=== PATIENT | male | born 1995 | race Caucasian/White ===

== ENCOUNTER 2017-06-20 19:15 | Emergency (ER) | payer OTHER ==
[~2017-06-20] VITALS: Ht 185.4 cm; Wt 73.9 kg
[2017-06-20 19:15] VITALS: BP 133/72
[2017-06-20] MEDS ORDERED: NAPR500T PO (19:54)
--- NOTE | 2017-06-20 19:54 | PHYS DOC ---
Past History Past Medical History: No Pertinent History Past Surgical History: Other Additional Past Surgical Histo: [place] teeth Smoking: Cigarettes Alcohol Use: Occasionally Drug Use: None Adult General Chief Complaint Chief Complaint: SHOULDER INJURY HPI HPI Patient is a 22 year old male who presents with right shoulder pain. He states he and his were "wrestling and she pulled it back behind me." Depue a "pop. " He is right hand dominant. No numbness/tingling or weakness of the arm. No neck pain or injury. No fall. Review of Systems Review of Systems Musculoskeletal: Denies back pain or neck pain. Right shoulder pain. Integument: Denies rash or skin lesions; no bruising Neurologic: Denies headache, focal weakness or sensory changes Physical Exam Physical Exam Constitutional: Well developed, well nourished, no acute distress, non-toxic appearance. Neck: Normal range of motion, no tenderness, supple, no stridor. Skin: Warm, dry, no erythema, no rash. Back: No tenderness, no CVA tenderness. Extremities: POS tenderness to palpation of right posterior shoulder, no cyanosis, no clubbing, ROM intact, no edema. Radial, median and ulnar N intact to motor and sensory distally. No palpable defect. Neurologic: Alert and oriented X 3, normal motor function, normal sensory function, no focal deficits noted. Current Patient Data Vital Signs Vital Signs Date Time Temp Pulse Resp B/P (MAP) Pulse Ox O2 Delivery O2 Flow Rate FiO2 06/20/17 19:15 98.4 77 20 100 Room Air Radiology/Procedures Radiology/Procedures Right shoulder xray interpreted by myself at 1945 PM: no acute fracture Course & Med Decision Making Course & Med Decision Making Reviewed xray findings. No acute bony injury. F/u as needed and referral to [facility]. I have spoken with the patient and/or caregivers. I have explained the patient' s condition, diagnosis and treatment plan based on the information available to me at this time. I have answered the patient's and/or caregiver's questions and addressed any concerns. The patient and/or caregivers have as good an understanding of the patient's diagnosis, condition and treatment plan as can be expected at this point. The patient's condition is stable and appropriate for discharge from the emergency department. The patient will pursue further outpatient evaluation with the primary care physician or other designated or consulting physician as outlined in the discharge instructions. The patient and/or caregivers are agreeable to this plan of care and follow-up instructions have been explained in detail. The patient and/or caregivers have received these instructions in written format and have expressed an understanding of the discharge instructions. The patient and/or caregivers are aware that any significant change in condition or worsening of symptoms should prompt an immediate return to this or the closest emergency department or a call to 911. Dragon Disclaimer Dragon Disclaimer This chart was dictated in whole or in part using Voice Recognition software in a busy, high-work load, and often noisy Emergency Department environment. It may contain unintended and wholly unrecognized errors or omissions. Departure Departure: Impression: Primary Impression: Right shoulder strain Disposition: HOME, SELF-CARE Condition: STABLE Referrals: PCP,UNKNOWN (PCP) Patient Instructions: Shoulder Exercises, Generic, SportsMed, Shoulder Pain Scripts Naproxen (NAPROSYN) 500 Mg Tablet 1 TAB PO BID, #30 TAB 1 Refill Prov: TOMI AGUIRRE MD 06/20/17 Problem Qualifiers Primary Impression: Right shoulder strain Encounter type: initial encounter Qualified Codes: S46.911A - Strain of unspecified muscle, fascia and tendon at shoulder and upper arm level, right arm , initial encounter TOMI AGUIRRE MD Jun 20, 2017 19:54
--- NOTE | 2017-06-21 08:25 | RAD ---
EXAM: Right shoulder, 3 views. HISTORY: Trauma. COMPARISON: None. FINDINGS: Internal and external rotation and transscapular views of the right shoulder obtained. There is no fracture, dislocation or subluxation. IMPRESSION: No acute osseous finding.
== END 2017-06-20 20:00 | disposition home or self-care (01) ==
LOC: ER 19:15
DX: S46.911A Strain of unspecified muscle, fascia and tendon at shoulder and upper arm level, right arm, initial encounter (principal); F17.210 Nicotine dependence, cigarettes, uncomplicated; X58.XXXA Exposure to other specified factors, initial encounter; Y93.72 Activity, wrestling; Y99.8 Other external cause status; Y92.89 Other specified places as the place of occurrence of the external cause
CPT/HCPCS: 73030; 99284

== ENCOUNTER 2017-06-25 08:18 | Emergency (ER) | payer OTHER ==
[~2017-06-25 08:18] MED LIST: NAPR500T PO
[2017-06-25 08:20] VITALS: BP 130/78
[2017-06-25] MEDS ORDERED: FLUORESCEIN 1MG EYE STRIP. ONE (08:50)
[2017-06-25] MEDS ORDERED: TETRACAINE 0.5% OPHTH SOLUTION 4ML BOTTLE. ONE (08:50)
[2017-06-25] MEDS ORDERED: TETRACAINE 0.5% OPHTH SOLUTION 4ML BOTTLE. OD ONE (09:00)
[2017-06-25] MEDS ORDERED: FLUORESCEIN 1MG EYE STRIP. OD ONE (09:00)
[2017-06-25] MEDS ORDERED: CYCL2DRO3 OP (09:19)
[2017-06-25] MEDS ORDERED: ERYT1OIN6 OP (09:19)
--- NOTE | 2017-06-25 09:20 | PHYS DOC ---
Past History Past Medical History: No Pertinent History Past Surgical History: Other Additional Past Surgical Histo: [place] teeth Smoking: Cigarettes Alcohol Use: Occasionally Drug Use: None Adult General Chief Complaint Chief Complaint: EYE PROBLEMS HPI HPI Patient is a pleasant 22-year-old male otherwise healthy who is a contact lens wearer who awoke this morning with redness and pain in his right eye. It had a slight mucous discharge but nothing concerning. Patient was more concerned about the redness pain and burning sensation on the surface of his eye. Patient denies any recent URI symptoms, denies any direct trauma to his eye he does wear contact lenses with her daily extended wear that he removes daily. He denies any foreign body sensation but he has had some sensitivity to light. There is been increased watering without loss of vision. Patient denies any rash on his face, ear pain fullness or tinnitus. Denies any sore throat or other issues. Review of Systems Review of Systems Constitutional: Denies fever or chills [] Eyes: Denies change in visual acuity, his only complaint is eye redness with mild eye pain and photophobia. HENT: Denies nasal congestion or sore throat [] Respiratory: Denies cough or shortness of breath [] Cardiovascular: No additional information not addressed in HPI [] GI: Denies abdominal pain, nausea, vomiting, bloody stools or diarrhea [] : Denies dysuria or hematuria [] Musculoskeletal: Denies back pain or joint pain [] Integument: Denies rash or skin lesions [] Neurologic: Denies headache, focal weakness or sensory changes [] Current Medications Current Medications Current Medications Medications (Trade) Dose Ordered Sig/Mona Start Time Stop Time Status Last Admin Dose Admin Fluorescein Sodium (Ful-Shell 1mg) 1 strip STK-MED ONCE 06/25/17 08:50 06/25/17 08:51 DC Tetracaine HCl (Tetracaine) 40 drop STK-MED ONCE 06/25/17 08:50 06/25/17 08:51 DC Allergies Allergies Allergies Coded Allergies Type Severity Reaction Last Updated Verified No Known Drug Allergies 06/25/17 No Physical Exam Physical Exam Of the vital signs recorded on the chart they're within normal limits. Constitutional: Well developed, well nourished, no acute distress, non-toxic appearance. [] HENT: Normocephalic, atraumatic, bilateral external ears normal, oropharynx moist, no oral exudates, nose normal. [] Eyes: PERRLA, EOMI, conjunctiva injected with a thin mucoid discharge patient has mild photophobia and foreign body sensation which was resolved with the application of tetracaine. Patient's facilitate exam eyelid demonstrated no foreign body, no Shannan sign, no rink sign, no evidence of corneal ulcer or abrasion. No uptake of topical staining Neck: Normal range of motion, no tenderness, supple, no stridor. [] Cardiovascular:Heart rate regular rhythm, no murmur [] Lungs & Thorax: Bilateral breath sounds clear to auscultation [] Skin: Warm, dry, no erythema, no rash. [] EKG EKG [] Radiology/Procedures Radiology/Procedures [] Course & Med Decision Making Course & Med Decision Making Pertinent Labs and Imaging studies reviewed. (See chart for details) patient presents after wearing contact lenses in the morning with redness, localized discharge and photophobia with likely a conjunctivitis. On physical exam there is no change in visual acuity, there is no consensual photophobia, there is no evidence of corneal ulcer or abrasion at this time. There is no rink sign, no Shannan sign consistent with a globe rupture. The lens and anterior chamber deep and quiet lenses intact without issue patient's extract movements are intact as well. Patient will be placed on antibiotic ointment for suspected bacterial Enteritis although it's likely viral. With close follow-up with his primary care doctor and instructions not to wear his contact lenses for the next 2 weeks while he is symptomatic. And follow-up with his local pediatric acute care unit nurse or nurse quality repeat exam if symptoms are not improved in 24 hours. [] Dragon Disclaimer Dragon Disclaimer This chart was dictated in whole or in part using Voice Recognition software in a busy, high-work load, and often noisy Emergency Department environment. It may contain unintended and wholly unrecognized errors or omissions. Departure Departure: Impression: Primary Impression: Conjunctivitis Disposition: HOME, SELF-CARE Condition: IMPROVED Referrals: PCP,UNKNOWN (PCP) Patient Instructions: Conjunctivitis (Viral and Bacterial) Additional Instructions: My discharge plan Follow up: In addition patient is asked to followup with their primary doctor, within a week for followup examination and to address patient's ongoing medical conditions. Because patient does not have a regular medical doctor, a local physician Resource Sheet will be provided to establish care primary care. Patient is advised that in the Emergency Department primary complaints are addressed and only in light of known signs and symptoms. Patient should return immediately to the emergency department if new signs and symptoms develop or patient's condition worsens in any way. At time of discharge patient was in stable condition and had verbalized understanding of the discharge instructions. Please follow-up with her local nurse quality or pediatric acute care unit nurse repeat slit lamp exam or exam.in the next 24 hours if symptoms do not improve. Please do not wear contact lenses for the next 2 weeks until you're symptoms of cleared entirely. Scripts Cyclopentolate Hcl (CYCLOGYL) 2 Ml Drops 2 ML OP TID for 2 Days, DROP Prov: CLAUDE BLAIR MD 06/25/17 Erythromycin Base (Erythromycin) 1 Gm Oint...g. 1 GM OP TID for 5 Days, MISC Prov: CLAUDE BLAIR MD 06/25/17 CLAUDE BLAIR MD Jun 25, 2017 09:20
== END 2017-06-25 09:25 | disposition home or self-care (01) ==
LOC: ER 08:18
DX: H10.9 Unspecified conjunctivitis (principal); F17.210 Nicotine dependence, cigarettes, uncomplicated
CPT/HCPCS: 99283

== ENCOUNTER 2017-09-11 18:36 | Emergency (ER) | payer OTHER ==
[~2017-09-11] VITALS: Ht 185.4 cm; Wt 73.9 kg
[~2017-09-11 18:36] MED LIST changes: +CYCL2DRO3 OP; +ERYT1OIN6 OP; +NAPR-683 PO; -NAPR500T PO
[2017-09-11 18:53] VITALS: BP 125/74
[2017-09-11] MEDS ORDERED: IBUP600T16 PO (19:37)
[2017-09-11] MEDS ORDERED: AMOX500C PO (19:37)
--- NOTE | 2017-09-11 19:37 | PHYS DOC ---
Past History Past Medical History: No Pertinent History Past Surgical History: No Surgical History Additional Past Surgical Histo: [place] teeth Smoking: Cigarettes Alcohol Use: Occasionally Drug Use: None Adult General Chief Complaint Chief Complaint: SORE THROAT HPI HPI Patient is a 22-year-old gentleman who presents here today secondary to a sore throat times one day. Patient denies any history of hypertension diabetes lung liver or kidney pals. Patient reports he smokes but does not drink or do drugs. Patient has had no prior surgeries. Patient has no known drug allergies. There have been no other sick family contacts. 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 Patient reports she's had low-grade fevers at home. Patient denies any nausea vomiting diarrhea cough cold rhinorrhea. Patient reports pain with swallowing. Patient denies any difficulty breathing. Patient denies any difficulty eating. Review of systems: Constitutional: Denies fever or chills Eyes: Denies change in visual acuity, redness, or eye pain HENT: Denies nasal congestion or sore throat Respiratory: Denies cough or shortness of breath All other systems were reviewed and found to be within normal limits, except as documented in this note. Physical exam: Constitutional: Well developed, well nourished, no acute distress, non-toxic appearance. HENT: Normocephalic, atraumatic, bilateral external ears normal, nose normal. Eyes: PERRLA, EOMI, conjunctiva normal, no discharge. Neck: Normal range of motion, no tenderness, supple, no stridor. Cardiovascular: Heart rate regular rhythm, Lungs & Thorax: Bilateral breath sounds clear to auscultation Abdomen: No abdominal distention. Skin: Warm, dry, no erythema, no rash. Back: Normal spinal curvature Extremities: No tenderness, no cyanosis, no clubbing, ROM intact, no edema. Neurologic: Alert and oriented X 3, normal motor function, normal sensory function, no focal deficits noted. Psychologic: Affect normal, judgement normal, mood normal. Patient's ER physical exam was most remarkable: Patient with bilateral submandibular lymphadenopathy with bilateral exudates left greater than right. Patient has no trismus. Patient has a normal voice. Patient has no stridor. Patient has no evidence of airway compromise. E Assessment and plan: 1. 22-year-old gentleman who presents here today with a sore throat consistent with strep pharyngitis. Patient's clinically hemodynamically stable. Patient is no evidence of airway, otherwise. Patient be discharged home on amoxicillin and ibuprofen will be given a work note for 2 days off for rest. Review of Systems Review of Systems Allergies Allergies Allergies Coded Allergies Type Severity Reaction Last Updated Verified No Known Drug Allergies 06/25/17 No Current Patient Data Vital Signs Vital Signs Date Time Temp Pulse Resp B/P (MAP) Pulse Ox O2 Delivery O2 Flow Rate FiO2 09/11/17 18:53 99.3 79 16 98 Room Air EKG EKG [] Radiology/Procedures Radiology/Procedures [] Course & Med Decision Making Course & Med Decision Making Pertinent Labs and Imaging studies reviewed. (See chart for details) [] Dragon Disclaimer Dragon Disclaimer This electronic medical record was generated, in whole or in part, using a voice recognition dictation system. Departure Departure: Impression: Primary Impression: Strep pharyngitis Disposition: HOME, SELF-CARE Condition: IMPROVED Referrals: KRYSTYNA FLORES DO (PCP) Patient Instructions: Strep Throat Scripts Ibuprofen (IBUPROFEN) 600 Mg Tablet 600 MG PO QID Y for PAIN, #20 Prov: FANTASMA BURNS MD 09/11/17 Amoxicillin (AMOXICILLIN) 500 Mg Capsule 1 CAP PO TID, #30 CAP Prov: FANTASMA BURNS MD 09/11/17 FANTASMA BURNS MD Sep 11, 2017 19:37
[2017-09-11] MEDS ORDERED: IBUPROFEN 600 MG TABLET. PO ONE (20:00)
[2017-09-11] MEDS ORDERED: AMOXICILLIN 250 MG CAPSULE PO ONE (20:00)
== END 2017-09-11 20:00 | disposition home or self-care (01) ==
LOC: ER 18:36
DX: J02.0 Streptococcal pharyngitis (principal); F17.210 Nicotine dependence, cigarettes, uncomplicated
CPT/HCPCS: 99283

== ENCOUNTER 2019-06-26 12:14 | Emergency (ER) | payer OTHER ==
[~2019-06-26] VITALS: Ht 185.4 cm; Wt 72.4 kg
[2019-06-26 12:14] VITALS: BP 131/81
[~2019-06-26 12:14] MED LIST changes: +AMOX500C PO; +IBUP600T16 PO
--- NOTE | 2019-06-26 12:45 | PHYS DOC ---
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 He noticed a lump on waking up this morning. Mild discomfort at that time. Became much worse as he stood up from a desk approximately an hour ago. Denies any trauma. Denies any dysuria or hematuria. Denies any swelling of the testicle itself. No nausea or vomiting. No previous history of this. No fever. No radiation of the discomfort. Pain is moderate in intensity.[] Review of Systems Review of Systems Constitutional: Denies fever or chills [] Eyes: Denies change in visual acuity, redness, or eye pain [] HENT: Denies nasal congestion or sore throat [] Respiratory: Denies cough or shortness of breath [] Cardiovascular: No chest pain or palpitations[] GI: Denies abdominal pain, nausea, vomiting, bloody stools or diarrhea [] : Denies dysuria or hematuria , see history of present illness[] Musculoskeletal: Denies back pain or joint pain [] Integument: Denies rash or skin lesions [] Neurologic: Denies headache, focal weakness or sensory changes [] Endocrine: Denies polyuria or polydipsia [] All other systems were reviewed and found to be within normal limits, except as documented in this note. Allergies Allergies Allergies Coded Allergies Type Severity Reaction Last Updated Verified No Known Drug Allergies 06/25/17 No Physical Exam Physical Exam Constitutional: Well developed, well nourished, no acute distress, non-toxic appearance. [] HENT: Normocephalic, atraumatic, bilateral external ears normal, oropharynx moist, no oral exudates, nose normal. [] Eyes: PERRLA, EOMI, conjunctiva normal, no discharge. [] Neck: Normal range of motion, no tenderness, supple, no stridor. [] Cardiovascular:Heart rate regular rhythm, no murmur [] Lungs & Thorax: Bilateral breath sounds clear to auscultation [] Abdomen: Bowel sounds normal, soft, no tenderness, no masses, no pulsatile masses. exam: Normal male, circumcised, bilateral descended testes without any tenderness. Normal cremasteric reflex. At the right inguinal canal there is a lump that increases with bearing down, does not reduce freely. It this is location of tenderness and it is tender to palpation. [] Skin: Warm, dry, no erythema, no rash. [] Back: No tenderness, no CVA tenderness. [] Extremities: No tenderness, no cyanosis, no clubbing, ROM intact, no edema. [] Neurologic: Alert and oriented X 3, normal motor function, normal sensory function, no focal deficits noted. [] Psychologic: Affect normal, judgement normal, mood normal. [] Current Patient Data Vital Signs Vital Signs Date Time Temp Pulse Resp B/P (MAP) Pulse Ox O2 Delivery O2 Flow Rate FiO2 06/26/19 12:14 98.0 88 16 99 Room Air EKG EKG [] Radiology/Procedures Radiology/Procedures PROCEDURE: EXT NON VASC RIGHT EXT NON VASC RIGHT History: Palpable mass. Comparison: None Technique: Sonographic examination of the right inguinal region Findings: Targeted ultrasound of the right inguinal region palpable abnormality. There is a small benign-appearing lymph node measures 1.0 x 0.4 x 0.4 cm with normal fatty hilum. Impression: 1. Benign-appearing lymph node within the right inguinal region corresponding with the patient's palpable abnormality.[] Course & Med Decision Making Course & Med Decision Making Pertinent Labs and Imaging studies reviewed. (See chart for details) ED course: Patient arrived, was placed in bed, and tolerated exam well. Initially attempted to reduce what felt like a hernia without any success. Patient was given pain medicine, transported to and from radiology without any complications. After the return of the imaging and laboratory findings, these were discussed with the patient who voiced understanding. A more thorough exam was performed of his lower extremities, there were no lesions, no breaks in the skin, no evidence of tinea pedis. All questions were answered. He was discharged in improved condition. Medical decision making: There does not appear to be a hernia, no evidence of testicular torsion, no evidence of lymphoma. No urinary tract infection or p yelonephritis.[] Dragon Disclaimer Dragon Disclaimer This electronic medical record was generated, in whole or in part, using a voice recognition dictation system. Departure Departure: Impression: Primary Impression: Lymph node enlargement Disposition: HOME, SELF-CARE Condition: IMPROVED Referrals: ALINA LAN MD (PCP) Follow-up in 2 days Additional Instructions: WHAT YOU NEED TO KNOW: Lymphadenopathy is swelling of your lymph nodes. Lymph nodes are small organs that are part of your immune system. The lymph nodes are found throughout your body. They are most easily felt in your neck, under your arms, and near your groin. Lymphadenopathy can occur in one or more areas of your body. It is usually caused by an infection. DISCHARGE INSTRUCTIONS: Return to the emergency department if: The swollen lymph nodes bleed. You have swollen lymph nodes in your neck that affect your breathing or swallowing. Contact your healthcare provider if: You have a fever. You have a new swollen and painful lymph node. You have a skin rash. Your lymph node remains swollen or painful, or it gets bigger. Your lymph node has red streaks around it, or the skin around the lymph node is red. You have questions or concerns about your condition or care. Follow up with your healthcare provider in 2 days: Write down your questions so you remember to ask them during your visits. Self-care: Do not poke or squeeze the swollen lymph nodes. Apply heat to the swollen glands. You may use warm compresses, or an electric heating pad set on low. Rest as needed. If you have a fever, rest until your temperature returns to normal. Return to your normal daily activities slowly after your fever is gone. Scripts Hydrocodone Bit/Acetaminophen (NORCO 5-325 TABLET) 1 Each Tablet 1 TAB PO Q4-6HRS for severe pain, #20 TAB Prov: JASPREET CONDON DO 06/26/19 Meloxicam (MELOXICAM) 7.5 Mg Tablet 7.5 MG PO DAILY for PAIN, #20 TAB Prov: JASPREET CONDON DO 06/26/19 Cephalexin (KEFLEX) 500 Mg Capsule 500 MG PO QID for lymphadenopathy for 10 Days, #40 CAP Prov: JASPREET CONDON DO 06/26/19 JASPREET CONDON DO Jun 26, 2019 12:45
[2019-06-26] MEDS ORDERED: MORPHINE SULFATE 4 MG/ML DISP.SYRIN. IV ONE (13:00)
[2019-06-26 13:11] LABS: BASO % 1 % (0-3); EOS # 0.1 x10^3/uL (0.0-0.7); EOS % 1 % (0-3); HEMATOCRIT 46.3 % (39.0-53.0); HEMOGLOBIN 16.1 g/dL (13.0-17.5); LYMPH % 28 % (24-48); MEAN CORPUSCULAR HEMOGLOBIN 32 pg (25-35); MEAN CORPUSCULAR HGB CONC 35 g/dL (31-37); MEAN CORPUSCULAR VOLUME 93 fL (79-100); MONO # 0.6 x10^3/uL (0.0-1.1); MONO % 8 % (0-9); NEUT # 4.4 x10^3uL (1.8-7.7); NEUT % 62 % (31-73); PLATELET COUNT 288 x10^3/uL (140-400); RED CELL DISTRIBUTION WIDTH 13.7 % (11.5-14.5); WHITE BLOOD COUNT 7.1 x10^3/uL (4.0-11.0)
[2019-06-26 13:21] LABS: ALBUMIN 4.1 g/dL (3.4-5.0); ALBUMIN/GLOBULIN RATIO 1.4 (1.0-1.7); CALCIUM 8.8 mg/dL (8.5-10.1); CREATININE 0.9 mg/dL (0.7-1.3); POTASSIUM 3.7 mmol/L (3.5-5.1); TOTAL BILIRUBIN 0.4 mg/dL (0.2-1.0)
--- NOTE | 2019-06-26 13:26 | RAD ---
EXT NON VASC RIGHT History: Palpable mass. Comparison: None Technique: Sonographic examination of the right inguinal region Findings: Targeted ultrasound of the right inguinal region palpable abnormality. There is a small benign-appearing lymph node measures 1.0 x 0.4 x 0.4 cm with normal fatty hilum. Impression: 1. Benign-appearing lymph node within the right inguinal region corresponding with the patient's palpable abnormality. Electronically signed by: Dano Ybarra DO (06/26/2019 1:23 PM) [id number]
[2019-06-26] MEDS ORDERED: CEPH-264 PO (13:49)
[2019-06-26] MEDS ORDERED: HYDR-3165 PO (13:49)
[2019-06-26] MEDS ORDERED: MELO7.5T29 PO (13:49)
[2019-06-26 14:27] LABS: BILIRUBIN,URINE NEG (NEG); CLARITY,URINE HAZY; COLOR,URINE YELLOW; GLUCOSE,URINE NEG (NEG); NITRITE,URINE NEG (NEG); UROBILINOGEN,URINE 0.2 mg/dL (0.2 mg/dL)
[2019-06-26 14:28] LABS: AMORPHOUS SEDIMENT,UR PRESENT /HPF; BACTERIA,URINE 0 /HPF (0-FEW); RBC,URINE 0 /HPF (0-2); WBC,URINE 0 /HPF (0-4)
== END 2019-06-26 14:40 | disposition home or self-care (01) ==
LOC: ER 12:14
DX: R59.0 Localized enlarged lymph nodes (principal); F17.210 Nicotine dependence, cigarettes, uncomplicated
CPT/HCPCS: 36415; 76881; 80053; 81001; 85025; 87491; 87591; 96374; 99285; J2270